=== PATIENT | male | born 1995 | race Caucasian/White ===

== ENCOUNTER 2017-07-05 06:56 | Emergency (ER) | payer OTHER ==
--- NOTE | ~2017-07-05 | CR126 ---
[facility] A Service of [facility] & [facility] RADIOLOGY TEXT RESULTS PATIENT: HIEU ESCAMILLA LOCATION: SED : [birth year] UNIT #: [id number] AGE: [address]: Dominga Branham MD SEX: M ORDER DR: [id number] [address] [id number] E MR#: [id number] #: [id number] NAME: HIEU ESCAMILLA : 1995 SEX: M STUDY DATE/TIME: 07/05/2017 7:27 UNIT: SED ROOM: STUDY DESCRIPTION: CR Foot Complete Min 3 View Lt Attending Physician: Dominga Branham M.D. Ordering Physician: Dominga Branham M.D. Primary Care Physician: Primary Care Physician No MEDICAL IMAGING REPORT This report is preliminary unless electronic signature is present. EXAM Left foot INDICATION Left foot pain after stepping out of truck and hearing a pop and swelling on top of the foot. Injury happened today. FINDINGS Three views of the left foot were obtained. There is amorphous calcification seen between the second and third metatarsal bones. It appears to be arising from the second metatarsal bone and it is about 3.4 cm in length. It is also seen on the lateral view where it extends dorsal to the bone by about 8.0 mm. The cortex appears intact in the second metatarsal bone. There is no fracture visible. IMPRESSION While there is no acute fracture visible, there is a ill-defined amorphous calcification situated between the second and third metatarsal bones that appears to be arising from the lateral cortical margin of the second metatarsal bone. This extends dorsal to the foot as well. Correlation with prior trauma is recommended. There could represent the sequela of prior injury. A soft tissue tumor cannot be excluded given the fact that it appears to be extending above the area between the two bones. I would recommend clinical followup with orthopedic evaluation and it may be necessary in the future to obtain an MRI to evaluate this area. The calcifications in this area extend about 3.4 cm from front to back and at least 8.0 mm in width and 8.0-10.0 mm from top to bottom. Dictated by... Jeff Wood M.D. THIS IS AN ELECTRONICALLY VERIFIED REPORT [facility]. [facility] A Service of [facility] & [facility] RADIOLOGY TEXT RESULTS PATIENT: HIEU ESCAMILLA [place] [facility] [place] [birth year] [place]IT #: [id number] AGE: [address]: Dominga Branham MD SEX: M ORDER DR: Jeff Wood M.D. at 07/05/2017 1:01 PM EDMOND/karne TD: 07/05/2017 09:40 JOB #: [id number] MEDICAL IMAGING REPORT Page 1 of 1
[2017-07-05] MEDS ORDERED: NO MEDICATIONS (07:12)
== END 2017-07-05 08:30 | disposition home or self-care (01) ==
LOC: SED 06:56 → EDBD 06:56 → SED 07:26
DX: S93.602A Unspecified sprain of left foot, initial encounter (principal); W22.8XXA Striking against or struck by other objects, initial encounter
CPT/HCPCS: 29515; 73630; 99283